=== PATIENT | male | born 1995 | race Caucasian/White ===

== ENCOUNTER 2018-03-08 14:07 | Emergency (ER) | payer OTHER ==
[~2018-03-08] VITALS: Ht 172.7 cm; Wt 89.8 kg
--- NOTE | 2018-03-08 14:12 | NUR ---
PT AMBULATED TO ER BED 07
[2018-03-08 14:15] VITALS: BP 145/65
--- NOTE | 2018-03-08 14:16 | NUR ---
PT. CAME INTO THE ED DUE TO RLQ PAIN X THIS MORNING. PT. STATES " THIS MORNING I WOKE UP AND MY STOMACH STARTED HURTING A LOT, I HAVE HAD NAUSEA AND VOMITED ONCE AND I HAD DIAHRRHEA ONCE SINCE TODAY". PT. IS AAOX4, RR EVEN AND UNLABORED, PT IS HOT AND DRY TO TOUCH. PT. DENIES MED HX, DENIES ALLERGIES AT THIS TIME. 04/14 PAIN THAT IS RLQ RADIATING TO LLQ AND LEGS AND SHARP. DENIES CHEST PAIN, DENIES SOB, PT. HAS N/V/D SINCE THIS MORNING. MOTHER AND GIRLFRIEND AT BEDSIDE. ER MD NOTIFIED. SAFETY PRECAUTIONS IMPLEMENTED. WILL CONTINUE TO MONITOR.
[2018-03-08] MEDS ORDERED: NACL 0.9% 1,000 ML IV ONE (14:22)
[2018-03-08] MEDS ORDERED: ONDANSETRON 4 MG/2 ML VIAL IVP ONE (14:25)
[2018-03-08] MEDS ORDERED: KETOROLAC 30 MG/ML VIAL IVP ONE (14:25)
--- NOTE | 2018-03-08 14:49 | NUR ---
PT. TAKEN TO CT VIA GURNEY BY BOWL TURNER, RR EVEN AND UNLABORED.
[2018-03-08 14:54] LABS: HEMATOCRIT 45.5 % (36-52); HEMOGLOBIN 15.7 g/dL (12.0-18.0); MEAN CORPUSCULAR HEMOGLOBIN 30 pg (27-31); MEAN CORPUSCULAR HGB CONC 35 g/dL (33-37); PLATELET COUNT (AUTO) 183 K/uL (140-450); RED BLOOD CELL COUNT(AUTO) 5.29 MIL/uL (4.20-6.10); RED CELL DISTRIBUTION WIDTH 13.3 % (11.6-13.7); WHITE BLOOD COUNT (AUTO) 10.3 K/uL (4.8-10.8)
[2018-03-08 15:16] LABS: LYMPHOCYTES % (MANUAL) 7 % (20-46); MONOCYTES % (MANUAL) 9 % (5-12)
[2018-03-08 15:33] LABS: ANION GAP 15.6 (8-16); CARBON DIOXIDE 21.4 mmol/L (21-32)
[2018-03-08 15:34] LABS: ALBUMIN 4.2 g/dL (3.4-5.0); TOTAL BILIRUBIN 0.7 mg/dL (0.0-1.0)
[2018-03-08] MEDS ORDERED: POTASSIUM CHLORIDE 10 MEQ TABER PO ONE (15:40)
--- NOTE | 2018-03-08 15:50 | NUR ---
PT. IN BED RESTING COMFORTABLY, RR EVEN AND UNLABORED. FAMILY AT BEDSIDE WILL CONTINUE TO MONITOR.
[2018-03-08 16:40] VITALS: BP 120/57
--- NOTE | 2018-03-08 16:40 | NUR ---
Patient discharged with v/s stable. Written and verbal after care instructions given and explained. Patient alert, oriented and verbalized understanding of instructions. Ambulatory with steady gait. All questions addressed prior to discharge. ID band removed. Patient advised to follow up with PMD. Rx of CIPROFLAXACIN , ZOFRAN given. Patient educated on indication of medication including possible reaction and side effects. Opportunity to ask questions provided and answered.
== END 2018-03-08 16:40 | disposition home or self-care (01) ==
LOC: MED 14:07
DX: K52.9 Noninfective gastroenteritis and colitis, unspecified (principal); R03.0 Elevated blood-pressure reading, without diagnosis of hypertension
CPT/HCPCS: 36415; 74022; 74176; 80053; 85025; 87040; 96361; 96374; 96375; 99285; J1885; J2405; J7030

== ENCOUNTER 2020-04-18 12:46 | Emergency (ER) | payer BC, OTHER ==
[~2020-04-18] VITALS: Ht 172.7 cm; Wt 80.7 kg
--- NOTE | 2020-04-18 12:50 | NUR ---
PT TAKEN TO BED 4.
[2020-04-18 12:53] VITALS: BP 131/71
--- NOTE | 2020-04-18 12:58 | NUR ---
24/M REFERRED FROM OUTPATIENT FOR RUQ AND RLQ PAIN X 4-5 DAYS, +ACEVES'S SIGN. DIARRHEA X TODAY. N/V A FEW DAYS AGO BUT NOT TODAY/NOW. VSS. NAD. HX- DENIES NKA
--- NOTE | 2020-04-18 13:00 | NUR ---
DR. LECHUGA AT BEDSIDE EVALUATING PATIENT.
[2020-04-18] MEDS ORDERED: ALUMINUM HYD/MAG/SIMETHICONE 30 ML, DICYCLOMINE HCL LIQUID 20 MG, LIDOCAINE VISCOUS 2% ... PO ONE ×3 (13:05)
[2020-04-18] MEDS ORDERED: LIDOCAINE VISCOUS 2% 20 ML UDC ONE (13:09)
[2020-04-18] MEDS ORDERED: DICYCLOMINE HCL LIQUID 10 MG/5 ML UDC ONE (13:09)
[2020-04-18] MEDS ORDERED: ALUMINUM HYD/MAG/SIMETHICONE 30 ML UDC ONE (13:09)
--- NOTE | 2020-04-18 13:11 | NUR ---
URINE SAMPLE CUP HANDED TO PT, ASKED FOR URINE SAMPLE. PT STATES UNABLE TO VOID NOW BUT WILL TRY LATER.
--- NOTE | 2020-04-18 13:14 | NUR ---
U/S TECH AT BEDSIDE
[2020-04-18 13:22] LABS: BASOPHILS % (AUTO) 0.2 % (0.0-2.0); EOSINOPHILS # (AUTO) 0.1 K/uL (0-0.4); HEMOGLOBIN 15.1 g/dL (12.0-18.0); LYMPHOCYTES % (AUTO) 12.8 % (20.5-51.1); MEAN CORPUSCULAR HEMOGLOBIN 31 pg (27-31); MEAN CORPUSCULAR HGB CONC 34 g/dL (33-37); MEAN CORPUSCULAR VOLUME 92.8 fL (80-94); MONOCYTES # (AUTO) 0.9 K/uL (0.8-1.0); MONOCYTES % (AUTO) 11.6 % (1.7-9.3); NEUTROPHILS # (AUTO) 5.6 K/uL (1.8-7.7); NEUTROPHILS % (AUTO) 74.4 % (42.2-75.2); PLATELET COUNT (AUTO) 217 K/uL (140-450); RED BLOOD CELL COUNT(AUTO) 4.85 MIL/uL (4.20-6.10); RED CELL DISTRIBUTION WIDTH 13.5 % (11.6-13.7); WHITE BLOOD COUNT (AUTO) 7.5 K/uL (4.8-10.8)
[2020-04-18 14:19] LABS: ANION GAP 11.7 (8-16); CARBON DIOXIDE 28.5 mmol/L (21-32); CREATININE 1.1 mg/dL (0.6-1.3); POTASSIUM 4.2 mmol/L (3.5-5.1); TOTAL BILIRUBIN 0.6 mg/dL (0.0-1.0)
[2020-04-18 14:35] VITALS: BP 128/68
--- NOTE | 2020-04-18 14:35 | NUR ---
Patient discharged with v/s stable. Written and verbal after care instructions given and explained. Patient alert, oriented and verbalized understanding of instructions. Ambulatory with steady gait. All questions addressed prior to discharge. ID band removed. Patient advised to follow up with PMD. Rx of Zofran, Bentyl, Pepcid, and Imodium given. Patient educated on indication of medication including possible reaction and side effects. Opportunity to ask questions provided and answered.
== END 2020-04-18 14:35 | disposition home or self-care (01) ==
LOC: MED 12:46
DX: K29.70 Gastritis, unspecified, without bleeding (principal); R19.7 Diarrhea, unspecified
CPT/HCPCS: 36415; 76705; 80053; 81002; 82150; 83690; 85025; 99284; Q0092